=== PATIENT | male | born 1995 | race Native Hawaiian/Other Pacific Islander ===

== ENCOUNTER 2018-01-16 21:00 | Emergency (ER) | payer OTHER ==
[2018-01-16 21:05] VITALS: RESP 16
--- NOTE | 2018-01-16 21:46 | C.PDOC ---
History Of Present Illness [id number] male presents to ER for evaluation of left ankle pain and swelling that developed yesterday after he sustained a twisting injury. Patient states while playing basketball he "jumped and landed wrong." Denies head injury, dneies weakness, deformity, sensory or vascular deficits to Left ankle and foot. Time Seen by Provider: 01/16/18 21:14 Chief Complaint (Nursing): Lower Extremity Problem/Injury History Per: Patient History/Exam Limitations: no limitations Onset/Duration Of Symptoms: Hrs Current Symptoms Are (Timing): Still Present Recent travel outside of the [place]: No - Ankle/Foot Description Of Injury: Other (Jumped and landed wrong) Past Medical History Reviewed: Historical Data, Nursing Documentation, Vital Signs Vital Signs: Last Vital Signs Temp 97.8 F 01/16/18 22:45 Pulse 55 L 01/16/18 22:45 Resp 16 01/16/18 22:45 BP 130/70 01/16/18 22:45 Pulse Ox 99 01/16/18 22:49 - Medical History PMH: No Chronic Diseases Surgical History: No Surg Hx Family History: States: No Known Family Hx - Social History Hx Alcohol Use: Yes Hx Substance Use: No Review Of Systems Constitutional: Negative for: Fever, Chills Gastrointestinal: Negative for: Nausea, Vomiting Musculoskeletal: Positive for: Other (Ankle pain and swelling) Skin: Negative for: Rash Neurological: Negative for: Weakness, Numbness Physical Exam - Physical Exam Appears: Well, Non-toxic, No Acute Distress Skin: Normal Color, Warm, No Rash, No Ecchymosis Head: Normacephalic Extremity: Normal ROM (MILD DISCOMFORT TO LEFT ANKLE FLEXION DUE TO PAIN.), Tenderness (LEFT ANKLE OVER MEDIAL AND LATERAL MALLEOLUS), Capillary Refill ( LESS THAN 2SEC TO LEFT FOOT), No Deformity, Swelling (DIFFUSE LEFT ANKLE) Neurological/Psych: Oriented x3, Normal Speech, Normal Motor, Normal Sensation, Normal Reflexes ED Course And Treatment O2 Sat by Pulse Oximetry: 99 (RA) Pulse Ox Interpretation: Normal - Other Rad Left ankle and foot Interpretation: (-) acute fx or dislocation Progress Note: On re-eval, pt is afebrile, hemodynamicaly stable. non-toxic. left ankle: exam c/w mild diffuse edema and tenderness over ankle. no deformity , no neurovascular deficits. Xray review and appears normal. Barry wra and air cast applied to Left ankle and foot. Crutches provided w/instruction. Pt advised. Ref. to f/u with melter supervisor in 2-3 days for re-eval. return if any new changes. Disposition Counseled Patient/Family Regarding: Studies Performed, Diagnosis, Need For Followup, Rx Given - Disposition Referrals: [facility] [Outside] Disposition: HOME/ ROUTINE Disposition Time: 21:35 Condition: STABLE Additional Instructions: RICE-REST,ICE,[id number], ELEVATION SPLINT FOR 1 WEEK TAKE MEDICATION FOR PAIN PRESCRIBED FOLLOW UP WITH AEROGRAPHER IN 2-3 DAYS FOR RE-EVALUATION. [facility]AT[facility] CL[facility]IC LOCATED AT [facility] ON [facility] FROM NOON- 4PM Prescriptions: Ibuprofen [Motrin Tab] 400 mg PO Q6 #14 tab Instructions: Ankle Sprain Forms: [employer] (Ugandan) - Clinical Impression Clinical Impression: Ankle sprain - PA / DISABILITIES CAREGIVER / Resident Statement MD/DO has reviewed & agrees with the documentation as recorded. - Scribe Statement The provider has reviewed the documentation as recorded by the Yuniel Sims All medical record entries made by the Erikaibgage were at my direction and personally dictated by me. I have reviewed the chart and agree that the record accurately reflects my personal performance of the history, physical exam, medical decision making, and the department course for this patient. I have also personally directed, reviewed, and agree with the discharge instructions and disposition.
[2018-01-16 22:46] VITALS: BP 130/70; PULSE 55; TEMP 97.8
[2018-01-16 22:48] VITALS: O2SAT 99
--- NOTE | 2018-01-17 09:34 | RAD ---
PROCEDURE: Left Foot Radiographs. HISTORY: Injury COMPARISON: Correlation made with radiographs of the left ankle FINDINGS: BONES: Normal. No fracture. JOINTS: Normal. SOFT TISSUES: Soft tissue swelling about the ankle less well seen on this study and the dedicated ankle radiographs OTHER FINDINGS: None. IMPRESSION: Is a fracture of the
--- NOTE | 2018-01-17 11:17 | RAD ---
PROCEDURE: Left ankle dated 01/16/2018 HISTORY: Injury COMPARISON: Correlation made with concurrent radiographs left foot FINDINGS: BONES: No evidence of acute displaced fracture nor dislocation. JOINTS: Normal. No osteoarthritis. Ankle mortise maintained. Talar dome intact SOFT TISSUES: Bilateral soft tissue swelling medial greater than lateral. OTHER FINDINGS: None. IMPRESSION: No evidence of acute displaced fracture nor dislocation. Bilateral soft tissue swelling medial greater than lateral
== END 2018-01-16 22:45 | disposition home or self-care (01) ==
LOC: C.ER 21:00
DX: S93.402A Sprain of unspecified ligament of left ankle, initial encounter (principal); X50.9XXA Other and unspecified overexertion or strenuous movements or postures, initial encounter; Y93.67 Activity, basketball